=== PATIENT | female | born 1985 | race Caucasian/White ===

== ENCOUNTER 2016-07-17 05:52 | Inpatient (IN) | payer OTHER ==
[~2016-07-17] VITALS: Ht 157.5 cm; Wt 63.5 kg
[~2016-07-17 05:52] MED LIST: BUPR8TAB2 PO; PREN1TAB25 PO
[2016-07-17] MEDS ORDERED: Lactated Ringer's 1,000 ML IV PRN (06:46)
[2016-07-17] MEDS ORDERED: Ondansetron 2 mg/mL 2 mL Inj IVPUSH PRN ×2 (06:50→11:20)
[2016-07-17] MEDS ORDERED: Sodium Chloride LOK Flush 10 mL Syringe IVFLUSH PRN (06:50)
[2016-07-17] MEDS ORDERED: Oxytocin 30 Units/500 mL LR 30 UNITS in IV Premix 1 EACH IV PRN (06:50)
[2016-07-17] MEDS ORDERED: fentaNYL-PF 50 mCg/mL 2 mL Inj IVPUSH PRN (06:50)
[2016-07-17] MEDS ORDERED: Hemorrhage Kit, Post Partum XX ONE ×2 (06:50→13:35)
[2016-07-17] MEDS ORDERED: Oxytocin 10 Unit/mL Inj IM PRN ×2 (06:50→13:35)
[2016-07-17] MEDS ORDERED: Methylergonovine 0.2 mg/mL Inj IM PRN ×2 (06:50→13:35)
[2016-07-17] MEDS ORDERED: Carboprost 250 mCg/mL Inj IM PRN ×2 (06:50→13:35)
[2016-07-17 07:00] LABS: Mean Corpuscular Hemoglobin 31.5 pg (27.0-35.0); Mean Corpuscular Volume 89.8 fL (81-100)
[2016-07-17] MEDS: Ascorbic Acid 500 mg Tablet PO SCH (08:00)
--- NOTE | 2016-07-17 10:13 | HP ---
[address] [address] HISTORY AND PHYSICAL PATIENT: DEEPTHI CARTER : 1985 MR#: [id number] ADMIT: 07/17/2016 JOB ID: [id number] CHIEF COMPLAINT: Fluid vaginal discharge--I think I broke my water broke. HISTORY OF PRESENT ILLNESS: This is a 30-year-old obstetrical patient of mine who is a 5, para 2, at 39 and 3 days gestational age who presents to the Center complaining of waking up this morning at about 3:45 with fluid coming from her vagina. She took a shower and still continued to have fluid and thought she broke her water so she came in for evaluation. Her evaluation at the Center verified that she has ruptured her membranes and the fluid is clear. It was verified with obvious gross rupture of membranes. She has been jose off and on for a day or so, but at about 4 o'clock she started jose more rigorously, frequently, and with more intensity. She really has no other acute complaints. Specifically no chest pain, palpitations, shortness of breath. No other abdominal pains. She has no swelling in her feet. No blurry vision and no headaches. PAST OBSTETRICAL HISTORY: The patient has had 2 prior vaginal births, most recently in 2008. Both vaginal births were unremarkable, and she has also had 2 early miscarriages. COURSE: Her course has been unremarkable. Her blood type is B positive. She is rubella immune. Serology was nonreactive. She has negative hepatitis B, hepatitis C, HIV antibody screen as well as chlamydia and gonorrhea tests with the initial exam. Initial Pap smear was unremarkable except for BV for which she was treated early on with metronidazole. HSV titers were positive for which she has been on acyclovir for the last month. She had an MSAFP test that was positive and went to the [facility] and their workup was negative. 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 She went to the [facility] and their workup was negative. She declined diabetic screen at 28 weeks and her GBS status was checked, and she is negative. Her course has been entirely unremarkable. OBSTETRICAL RISK FACTORS: Multiple, to include: She has a history of heroin use, last used in January 2015. She denies any subsequent drug use and drug testing twice during the course of the has been negative. She is currently going to the local Suboxone clinic and being treated with Subutex daily. She has a history of LEEP procedure in 2012 on her cervix. She is planning on putting the baby up for adoption. There is a family locally that is planning on adopting the baby and have already met one of the members of the couple. Another risk factors is her herpes titer for herpes 2 is positive. She had BV on initial Pap and this was treated at 13 weeks. She had the positive MSAFP test, but subsequent negative workup, and she is a smoker. GYNECOLOGICAL HISTORY: Remarkable for having a positive HPV on Pap smears in the past with subsequent LEEP in 2012. She has a history of Chlamydia infection in 2008 that was treated, and she has a history of herpes type 2. PAST MEDICAL HISTORY: Significant for some depression for which she is not currently on any medications, but has been in the distant past. Her medical history is also significant for the drug use as mentioned above. Otherwise, her medical history is entirely unremarkable. PAST SURGICAL HISTORY: Negative. MEDICATIONS: Currently takin. Subutex. 2. Acyclovir 400 mg twice a day. 3. vitamins. ALLERGIES: She has no known drug allergies. FAMILY HISTORY: Significant for hypertension in paternal grandmother. Otherwise is noncontributory. SOCIAL HISTORY: The patient lives in [place] alone with her 2 children. 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 She is a smoker smoking a half pack a day. Denies any alcohol use or drug use. Again drug screens have been done twice during the course of the and have been negative. REVIEW OF SYSTEMS: See HPI above. The patient denies any recent illness. No fevers. No URI symptoms. OBJECTIVE: Well-developed, well-nourished woman in no apparent distress. She is 141 pounds. She is 5 feet 2 inches. BMI is normal. Blood pressure is 128/82, pulse 90, respirations 20, and she is afebrile. Lungs are clear to auscultation bilaterally with good air movement. Heart is regular rate and rhythm, no significant murmurs heard. Abdomen is gravid, otherwise benign. Extremities showed no significant edema and normal deep tendon reflexes. Cervical exam she is 1 cm about 80% to 90% effaced -3 station with the baby in a vertex position. She is jose irregularly. heart tracing is reactive. ASSESSMENT: Intrauterine at term with premature rupture of membranes. Will plan on admitting the patient for expectant management. We will plan on allowing her body to naturally go into labor for at least 6 hours and if she has not started cervical change will plan induction at that time. Otherwise I have written for routine intrapartum orders. I discussed routine expectant management issues and procedures. Also discussed potential complications in the usual obstetrical procedures to address them, but also the possible need for surgical care if a becomes needed. I also discussed the possible need for assistance with vacuum extraction and the associated potential complications. All of her questions were answered, and she expressed understanding of these issues and is willing to proceed.
[2016-07-17] MEDS ORDERED: Lactated Ringer's 500 ML IV ONE (11:17)
[2016-07-17] MEDS ORDERED: Lactated Ringer's 1,000 ML IV SCH ×3 (11:17→15:20)
[2016-07-17] MEDS ORDERED: EPHEDrine Sulfate 50 mg/mL Inj IVPUSH PRN (11:20)
[2016-07-17] MEDS ORDERED: fentaNYL 2 mCg/mL-Bupiv 0.125% 100 ML EPIDURAL SCH (11:20)
[2016-07-17] MEDS ORDERED: Atropine 1 mg/10 mL (Code) Syringe IVPUSH PRN (11:20)
[2016-07-17] MEDS ORDERED: fentaNYL 2 mCg/mL-Bupivicaine 0.125% 100 mL Premix EPIDURAL ONE (11:22)
--- NOTE | 2016-07-17 12:21 | PCM.HPANE ---
Patient Data Surgeon Admitting Provider:Mundo Mathew MD Attending Provider:Mundo Mathew MD Primary Care Physician:Mundo Mathew MD Other Provider:Niki Riosingham Anesthesia Reason for Visit Term Labor TERM LABOR Ht/WT & BMI Body Mass Index Allergies Coded Allergies: No Known Allergies (Verified , 05/23/15) Past Anesthesia History Anesthesia History: Denies:: Fam Anesthesia Reaction, Fam Malignant Hypertherm Diabetes History Hx Diabetes?: No MRSA MRSA: No Medications Reported Medications Vit#96/Ferrous Fum/FA ( Tablet)1 Each Tablet1 Tab PO DAILY #30 05/21/15 Buprenorphine SL 8 Mg Tab.subl8 Mg PO DAILY #28 05/21/15 History History of ENT Problems?: No HEENT History: Denies:: Dysphagia Hearing Problem Sinus Problem Denture Type: None Teeth Condition: Within Normal Limits Hx of Heart Problems?: No Cardiovascular History: Denies:: Congestive Heart Failure Edema Heart Murmur Hypertension Irregular Heartbeat Pacemaker Hx of Respiratory Problem?: No Respiratory History: Denies:: Asthma Cough Dyspnea Emphysema Hemoptysis Oxygen Administration Pulmonary Embolism Tuberculosis Hx Neurologic Problems?: No Neurological History: Denies:: Dizziness Headaches Multiple Sclerosis Parkinson's Disease Seizures Hx of GI Problems?: No Hx of Problems?: No Genitourinary History: Denies:: HX of Hemodialysis Kidney Stones HX of Peritoneal Dialysis: No Female Hx: Denies:: Currently Endometriosis Pelvic Inflammatory Problems with Breasts? Skin History: Denies:: History Skin Disorders? Pressure Ulcers Hx Musculoskeletal Problems?: No Musculoskeletal History: Denies:: Degenerative Joint Hx of Psycho/Social Problems?: Yes (hx meth/heroin use; now on suboxone; sober for over one year) Psycho Social History: Positive for:: Hx Depression Denies:: Anxiety Bipolar Disorder Hx Surgeries?: Yes Hx Any Other Health Problems?: No Other History: Denies:: Cancer Thyroid Disease History Blood Transfusions: Denies:: Blood Transfusions Hx Diabetes: No Hx Alcohol Use: NoHx Substance Use: Yes (heroin, meth, marijuana) Smoking Status: Current Every Day Smoker Have You Smoked inLast 12 mo: Yes Stop/Bang Risk Assessment Category Category 1A: Patient has history of documented sleep apnea, and HAS NOT received any narcotic, sedative or anesthesia administration during this stay. Category 1B: Patient has history of documented sleep apnea, and HAS received any narcotic , sedative or anesthesia administration during this stay Category 2: Patient has SUSPECTED Obstructive Sleep Apnea, and HAS received any narcotic , sedative or anesthesia administration during this stay. Category 3: Patient has SUSPECTED Obstructive Sleep Apnea and HAS NOT received narcotic, sedative or anesthesia administration during this stay. Category 4: Outpatient in Procedural Areas with known sleep apnea or who screen positive for High Risk via the STOP/BANG questionnaire. Exam Exam General Appearance: Alert, Oriented X3 HEENT/AIRWAY: MP 2, Neck Movement (FROM) Lungs: Clear to Auscultation, Clear to Percussion Heart: Exam Unremarkable, Regular Rate/Rhythm Meds/Labs/Diagnostics Labs Test 07/17/16 06:30 07/17/16 09:20 White Blood Count 8.3th/mm3 (3.8-10.1) Red Blood Count 4.22mil/mm3 (3.90-5.20) Hemoglobin 13.3g/dL (12.0-15.6) Hematocrit 37.9% (35.0-46.0) Mean Corpuscular Volume 89.8fL (81-100) Mean Corpuscular Hemoglobin 31.5pg (27.0-35.0) Mean Corpuscular Hemoglobin Concent 35.1% (32.0-37.0) Red Cell Distribution Width 12.6% (12.3-15.4) Platelet Count 196bil/L (150-400) Hold Urine Received (Received) Plan Impression Patient chart reviewed, patient interviewed and anesthestic plan with risks, benefits, and alternatives discussed, and informed consent obtained. ASA Physical Status: ASA3 Severe Disease (chronic suboxone; hx drug use) Anesthetic Plan: Epidural Bene/Risks/Altern/Consents: Yes HP Complete Prior to Induction: Yes Cali Moreno MD Jul 17, 2016 11:17
[2016-07-17] MEDS ORDERED: Witch Hazel-Glycerin Pads TOPICAL PRN (13:35)
[2016-07-17] MEDS ORDERED: Benzocaine (Dermoplast) 20% 60 Gm Spray TOPICAL PRN (13:35)
--- NOTE | 2016-07-17 14:26 | OP ---
[address] [address] OPERATIVE REPORT PATIENT: DEEPTHI CARTER : 1985 MR#: [id number] ADMIT: 07/17/2016 JOB ID: [id number] DATE OF SURGERY: 07/17/2016 SURGEON: Mundo Mathew MD PREOPERATIVE DIAGNOSIS(ES): Term POSTOPERATIVE DIAGNOSIS(ES): Spontaneous Vaginal Delivery at Term DELIVERY NOTE: The patient had a spontaneous delivery on July 17, as described below. I was the attending physician, Mundo Mathew MD Please see my admission history and physical for her admitting circumstances. Her labor course progressed rapidly and needed no augmentation. She presented with rupture of membranes at only 1 cm but fully effaced. Over the next few hours, she dilated slowly and eventually got to about 5 cm with regular contractions and requested an epidural. This was placed with good results. She was found to be completely dilated and effaced at 12:37 and began pushing. The baby was in an occiput anterior position with excellent epidural anesthesia. She pushed until she delivered the baby's head, and then there was no nuchal cord noted and then the rest of the delivery was completed at 13:09 over an intact perineum. Baby was placed on mom's tummy, and then after an approximately 60-second delay, then the cord was clamped and cut. The placenta delivered spontaneously and intact at 13:16. Three-vessel cord was noted. Inspection of the perineum and cervix revealed no lacerations or significant injury at all. ESTIMATED BLOOD LOSS: 200 cc. COMPLICATIONS: None. The baby was a baby boy with Apgars of 9 and 9. Weight is still pending. [facility]
[2016-07-17] MEDS ORDERED: Buprenorphine 2 mg SL Tablet SL ONE (14:35)
[2016-07-17] MEDS ORDERED: Sodium Chloride LOK Flush 10 mL Syringe IVFLUSH SCH (16:30)
[2016-07-18] MEDS ORDERED: Sodium Citrate-Citric Acid 15 mL Solution PO SCH (06:00)
[2016-07-18 06:20] LABS: Mean Corpuscular Hemoglobin 31.1 pg (27.0-35.0); Mean Corpuscular Volume 89.6 fL (81-100)
--- NOTE | 2016-07-18 06:24 | PCM.HPANE ---
Patient Data Surgeon Admitting Provider:Mundo Mathew MD Attending Provider:Mundo Mathew MD Primary Care Physician:Mundo Mathew MD Other Provider:Niki Riosingham Anesthesia Reason for Visit Term Labor TERM LABOR Ht/WT & BMI Body Mass Index Allergies Coded Allergies: No Known Allergies (Verified , 05/23/15) Past Anesthesia History Anesthesia History: Denies:: Fam Anesthesia Reaction, Fam Malignant Hypertherm Diabetes History Hx Diabetes?: No MRSA MRSA: No Medications Reported Medications Vit#96/Ferrous Fum/FA ( Tablet)1 Each Tablet1 Tab PO DAILY #30 05/21/15 Buprenorphine SL 8 Mg Tab.subl8 Mg PO DAILY #28 05/21/15 History History of ENT Problems?: No HEENT History: Denies:: Dysphagia Hearing Problem Sinus Problem Denture Type: None Teeth Condition: Within Normal Limits Hx of Heart Problems?: No Cardiovascular History: Denies:: Congestive Heart Failure Edema Heart Murmur Hypertension Irregular Heartbeat Pacemaker Hx of Respiratory Problem?: No Respiratory History: Denies:: Asthma Cough Dyspnea Emphysema Hemoptysis Oxygen Administration Pulmonary Embolism Tuberculosis Hx Neurologic Problems?: No Neurological History: Denies:: Dizziness Headaches Multiple Sclerosis Parkinson's Disease Seizures Hx of GI Problems?: No Hx of Problems?: No Genitourinary History: Denies:: HX of Hemodialysis Kidney Stones HX of Peritoneal Dialysis: No Female Hx: Denies:: Currently Endometriosis Pelvic Inflammatory Problems with Breasts? Skin History: Denies:: History Skin Disorders? Pressure Ulcers Hx Musculoskeletal Problems?: No Musculoskeletal History: Denies:: Degenerative Joint Hx of Psycho/Social Problems?: Yes (hx meth/heroin use; now on suboxone; sober for over one year) Psycho Social History: Positive for:: Hx Depression Denies:: Anxiety Bipolar Disorder Hx Surgeries?: Yes Hx Any Other Health Problems?: No Other History: Denies:: Cancer Thyroid Disease History Blood Transfusions: Denies:: Blood Transfusions Hx Diabetes: No Hx Alcohol Use: NoHx Substance Use: Yes (heroin, meth, marijuana) Smoking Status: Current Every Day Smoker Have You Smoked inLast 12 mo: Yes Stop/Bang Risk Assessment Category Category 1A: Patient has history of documented sleep apnea, and HAS NOT received any narcotic, sedative or anesthesia administration during this stay. Category 1B: Patient has history of documented sleep apnea, and HAS received any narcotic , sedative or anesthesia administration during this stay Category 2: Patient has SUSPECTED Obstructive Sleep Apnea, and HAS received any narcotic , sedative or anesthesia administration during this stay. Category 3: Patient has SUSPECTED Obstructive Sleep Apnea and HAS NOT received narcotic, sedative or anesthesia administration during this stay. Category 4: Outpatient in Procedural Areas with known sleep apnea or who screen positive for High Risk via the STOP/BANG questionnaire. Exam Exam General Appearance: Alert, Oriented X3 HEENT/AIRWAY: MP 2, Neck Movement (FROM), Mouth Opening (good) Lungs: Clear to Auscultation, Clear to Percussion Heart: Exam Unremarkable, Regular Rate/Rhythm Meds/Labs/Diagnostics Admission Meds Current Medications Lactated Ringer's (Lr) 1,000 ml @ 125 mls/hr Q8H IV Last administered on 06:17; Start 07/17/16 at 11:17; Stop 07/18/16 at 11:18 Citalopram Hydrobromide (CeleXA) 20 mg DAILY PO Last administered on 07/17/16 17:01; Start 07/17/16 at 14:35 Buprenorphine HCl (Subutex) 8 mg ONCE ONCE SL Last administered on 07/17/16 16:43; Start 07/17/16 at 14:35; Stop 07/17/16 at 14:45; Status DC Labs Test 07/17/16 09:20 07/18/16 06:00 Hold Urine Received (Received) Urine Opiates Screen Negative Urine Methadone Screen Negative Urine Barbiturates Screen Negative Urine Amphetamines Screen Negative Urine Benzodiazepines Screen Negative Urine Cocaine Metabolite Screen Negative Urine Cannabinoids Screen Negative Plan Impression Patient chart reviewed, patient interviewed and anesthestic plan with risks, benefits, and alternatives discussed, and informed consent obtained. ASA Physical Status: ASA2 Mod Systemic Disease Anesthetic Plan: MAC, SAB Bene/Risks/Altern/Consents: Yes HP Complete Prior to Induction: Yes Chang Spencer MD Jul 18, 2016 06:24
[2016-07-18] MEDS ORDERED: Lactated Ringer's 1,000 ML IV SCH (07:32)
[2016-07-18] MEDS ORDERED: Lactated Ringer's 500 ML IV PRN (07:32)
[2016-07-18] MEDS ORDERED: EPHEDrine Sulfate 50 mg/mL Inj IM PRN (07:35)
[2016-07-18] MEDS ORDERED: Phenylephrine 10,000 mCg/mL Inj IVPUSH PRN (07:35)
[2016-07-18] MEDS ORDERED: Labetalol 5 mg/mL 4 mL Inj IV PRN (07:35)
[2016-07-18] MEDS ORDERED: hydrALAZINE 20 mg/mL Inj IVPUSH PRN (07:35)
[2016-07-18] MEDS ORDERED: Ondansetron 2 mg/mL 2 mL Inj IVPUSH PRN (07:35)
[2016-07-18] MEDS ORDERED: fentaNYL-PF 50 mCg/mL 2 mL Inj IVPUSH PRN (07:35)
[2016-07-18] MEDS ORDERED: hydrOXYzine Inj 50 MG/1 mL SDV IM PRN (07:35)
[2016-07-18] MEDS ORDERED: HYDROmorphone 1 mg/mL Inj IVPUSH PRN (07:35)
[2016-07-18] MEDS ORDERED: EPHEDrine Sulfate 50 mg/mL Inj IVPUSH PRN (07:35)
[2016-07-18] MEDS ORDERED: Atropine 0.4 mg/mL Inj IVPUSH PRN (07:35)
[2016-07-18] MEDS ORDERED: Dexamethasone 4 mg/mL Inj IVPUSH PRN (07:35)
[2016-07-18] MEDS: oxyCODONE-Acetamin 5-325 mg Tablet PO PRN ×2 (09:19→14:21)
--- NOTE | 2016-07-18 09:49 | PROG NOTE ---
[address] [address] PROGRESS NOTE PATIENT: DEEPTHI CARTER : 1985 MR#: [id number] ADMIT: 07/17/2016 JOB ID: [id number] DATE: 07/18/2016 SUBJECTIVE: This is a 30-year-old female. She is para 3. She had an uneventful vaginal delivery yesterday, and she desires for permanent sterilization. The sterilization paper was signed more than 30 days ago. The procedure was arranged yesterday. I saw the patient this morning, and she is still desire for the procedure. After discussion of the benefits, risks, and alternatives of the procedure, informed consent signed. The patient understood there is risk of infection, bleeding, injury to the organs around the tubes including, but not limited to, the uterus, the ovaries, bowels, major nerves and major vessels. She understood this is a permanent procedure and there is no way to reverse, and she also understood that this is not 100% guaranteed for control.
--- NOTE | 2016-07-18 10:37 | NUR ---
Social work Note - Family Mother - Marce Kelley Father - Not involved, not willing to sign paperwork for adoption. Adoptive parents - Armando and Lamar Rutherford Marce Kelley is a 30 yr old who delivered baby boy yesterday and plans to complete an open adoption for her baby. She states that she has two other children who are in her care - the youngest being 8. MOB states that she became with a man she is no longer in relationship with and who is not interested in parenting. She states that she does not believe in and made arrangements with the adoptive family for an open adoption. MOB and the adoptive family are working through a private ballast regulator operator to finalize the adoption - paperwork had not been signed at the time of the interview. PRETTY is tearful, stating that she is sad that she does not feel able to parent this son. She states that she does not have the means to provide for his care and believes that the adoptive family is able to. But PRETTY admits that she is grieving. She has good supports - has friends who are willing and able to help her. Substance use: PRETTY has hx of heroin addiction - states that she stopped in 2014 and is on Subutex at this time. She plans to continue on meds to help. Mental Health: PRETTY endorses depression and identifies that she has struggled with PPD in the past. She has already talked with her provider about starting on medications. G[employer] LEAK INSPECTOR HELPER Provided education on PPD and provided handouts for resources. She denies any suicidal ideation. PRETTY voiced anxiety about how to share her decision to adopt with her friends, family and especially her son. GAS LEAK INSPECTOR HELPER provided support and provided resources for Pt to follow up with. GAS LEAK INSPECTOR HELPER spoke briefly to Lamar Rutherford, Adoptive mother. She has identified that the ballast regulator operator for the adoption is coming to the hospital today to sign paperwork for the adoption. Lamar denies any questions - has been working with watcher lookout tower and Head Tennis Coach to explore policies for visitation, feedings. GAS LEAK INSPECTOR HELPER discussed case with RN and will follow if needs arise. Plan: Open adoption planned for Teresa Kelley - ANDRE Humphrey
[2016-07-18] MEDS ORDERED: Buprenorphine 2 mg SL Tablet SL ONE (14:05)
--- NOTE | 2016-07-18 14:49 | PCM.ANEP1 ---
Post Anesthesia Phase 1 PACU Phase 1 Assessment Anesthetic Administered: SAB Level of Alertness: Awake, talking ANDERSON's with Equal Strength: Yes Pain: No Pain Scale Score: 4 Nausea or Vomiting: No Cardiovascular Function and Hy: No Lungs: Normal Air Movement Dermatome Level: T10 (Umbilicus) Complications: No Follow up Care: No Patient Instructions Provided: Yes Chang Spencer MD Jul 18, 2016 14:49
--- NOTE | 2016-07-18 17:32 | OP ---
[address] [address] OPERATIVE REPORT PATIENT: DEEPTHI CARTER : 1985 MR#: [id number] ADMIT: 07/17/2016 JOB ID: [id number] DATE OF SURGERY: 07/18/2016 SURGEON: Ashley Hart MD PREOPERATIVE DIAGNOSIS(ES): Para 3, status post normal vaginal delivery one day ago. Desire for sterilization. POSTOPERATIVE DIAGNOSIS(ES): Para 3, status post normal vaginal delivery one day ago. Desire for sterilization. INDICATIONS: This is a 30-year-old female, para 3, status post normal vaginal delivery. Desire for permanent sterilization. Informed consent form signed for tubal ligation. PROCEDURE IN DETAIL: The patient transferred to operating room. After anesthesia was noted to be adequate, she was placed in dorsal supine position. She was prepared and draped in normal sterile fashion. A transverse incision was placed under her umbilicus and this incision was carried through to the underlying fascia with a scalpel, and a transverse incision was placed in fascia and the underlying peritoneum identified and entered bluntly. At this time, the retractor was used to expose the fundus of the uterus and across this was used to clear the vision field. The left-sided tube was grasped gently by Jayna clamp and this was confirmed with the tube by seeing the whole range of the tube including the fimbria. The inner 1/3 of the tube was grasped by Jayna, and the segment was tied twice by 2-0 plain sutures. The segment of the left tube about 3 cm was removed and hemostasis confirmed. The left tube was returned back to the peritoneal cavity. The same procedure was done on the right tube and both segments of the tube were sent for pathology. Hemostasis confirmed. At this time, all instruments and gauzes removed from the field. The fascia was reapproximated by 0-Vicryl continuously. The skin was closed by 4-0 Monocryl subcutaneously. The patient tolerated the procedure well. All instrument, needles, laps and gauzes counted correct twice. The EBL during procedure was 5 cc. The patient was transferred to recovery room in stable condition.
[2016-07-18] MEDS: Ascorbic Acid 500 mg Tablet PO SCH (17:49)
--- NOTE | 2016-07-18 18:32 | PCM.DIOB ---
Obstetrical Disch Instruction Date of Service: Jul 18, 2016 Dates of Hospitalization Date of Hospital Admission Jul 17, 2016 at 06:16 Providers Admitting Physician: Mundo Mathew MD Primary Care Physician: Mundo Mathew MD Attending Physician: Mundo Mathew MD Discharge Diagnosis Problems: (1) Term Status: Resolved ICD Code: Z34.80 (2) Normal spontaneous vaginal delivery Status: Resolved ICD Code: O80 Diet Discharge Diet: No restrictions Activity Discharge Activity-General: Pelvic Rest for 6 weeks, Try not to overdue, Be up and about, Balance rest and activity, No lifting >15 pounds for 2 weeks Dressing and Incisional Care Hygiene: May shower Follow Up Plan Follow Up Plan f/u in 6 weeks and as needed. Follow-up Provider (F9): Mundo Mathew MD Follow-up appointment: Weeks (six) Call your provider for: Fever or Chills, Shortness of breath, Heavy vaginal bleeding, Heavy bleeding, Epigastric pain, Excessive constipation, Vaginal discomfort, Red painful breasts Mundo Mathew MD Jul 18, 2016 18:32
[2016-07-18] MEDS ORDERED: OXYC1TAB24 PO (18:33)
[2016-07-18] MEDS ORDERED: IBUP800T28 PO (18:33)
[2016-07-18 18:35] VITALS: BP 109/56; PULSE 74; RESP 16
[2016-07-18] MEDS ORDERED: fentaNYL-PF 50 mCg/mL 2 mL Inj ONE (19:24)
[2016-07-18] MEDS ORDERED: Propofol 10,000 mCg/mL 20 mL Inj ONE (19:24)
[2016-07-18] MEDS ORDERED: Ondansetron 2 mg/mL 2 mL Inj ONE (19:24)
--- NOTE | 2016-07-19 21:14 | DIS ---
[address] [address] DISCHARGE SUMMARY PATIENT: DEEPTHI CARTER : 1985 MR#: [id number] ADMIT: 07/17/2016 JOB ID: [id number] DIS: 07/18/2016 DISCHARGE DIAGNOSIS: Term , resolved with spontaneous vaginal delivery. HISTORY AND PHYSICAL: Please see my admission H and P for details. CONSULTATIONS: The patient had an obstetrical consultation prior to delivery and after she delivered her baby vaginally she had a tubal ligation performed by Dr. Hart. See Dr. Hart's consultation and operative note for details/ PROCEDURES: 1. The patient had a spontaneous vaginal delivery on the afternoon of July 17. See my delivery note for details. 2. The patient had a bilateral tubal ligation performed on the morning of July 18. See Dr. Hart's operative note for details. HOSPITAL COURSE: The patient was admitted with spontaneous rupture of membranes on the morning of July 17 and proceeded naturally and fairly quickly into labor and had a vaginal with no significant problems in the afternoon of July 17. See my delivery note for details. Her course was unremarkable. The next morning, on July 18, she had a tubal ligation performed by Dr. Hart. See Dr. Hart's operative note for details. She recovered nicely after that and was wanting to go home in the evening of the . DISCHARGE PHYSICAL EXAM: Her vital signs were normal and stable. Lungs were clear to auscultation bilaterally with good air movement. Heart was regular rate, rhythm without murmur. Abdomen was soft and tender around her umbilical incision site but otherwise was unremarkable. Uterus was firm and below the umbilicus. Extremities showed no significant edema and normal deep tendon reflexes. ASSESSMENT/PLAN: Status post spontaneous vaginal delivery as well as bilateral tubal ligation. Patient is stable and ready to be discharged. The patient was discharged home with discharge medications as follows: 1. Ibuprofen 800 mg to use t.i.d. p.r.n. for pain 2. Percocet 5/325, 20 tablets, to be used for breakthrough pain if needed. The patient was told to follow up with me in six weeks, otherwise as needed.
--- NOTE | 2016-07-20 13:40 | PATH ---
SURGICAL PATHOLOGY Attending Physician:Ashley Hart MD CASE STATUS: Signed Out PATIENT NAME: DEEPTHI CARTER PID: [id number] : 1985 DATE COLLECTED:07/18/2016 20:28 SPECIMEN: 1: Fallopian Tube, Sterilization 2: Fallopian Tube, Sterilization CLINICAL HISTORY: DESIRES BTL FOR STERILIZATION 30 YO BTL 07/17 (1 DAY ) UNKNOWN 1). LEFT FALLOPIAN TUBE SEGMENT 2). RIGHT FALLOPIAN TUBE SEGMENT FINAL DIAGNOSIS: 1. Fallopian Tube Segment, Left, Tubal Ligation: Complete cross-section of segment of fallopian tube x1. 2. Fallopian Tube Segment, Right, Tubal Ligation: Complete cross-section of segment of fallopian tube x1. ICD10: Z30.2 GROSS DESCRIPTION: The specimen is received in two formalin filled containers labeled with the patient's name. 1). The specimen is sublabeled "L. fallopian tube" and consists of a 2.5 x 0.6 x 0.6 CM cylindrical-shaped portion of tissue. The specimen is inked blue. The specimen is sectioned into 4 pieces and entirely submitted in cassette 1A. 2). The specimen is sublabeled "R. fallopian tube" and consists of a 1.4 x 0.6 0.5 CM cylindrical-shaped portion of tissue. The specimen is inked blue. The specimen is sectioned into 4 pieces and entirely submitted in cassette 2A. 07/18/2016 [facility] ICD-9 CODES: CPT CODES: 1: 69014 2: 45119 Electronically Signed Out Marcella White MD [facility] [address], [place] [address] Technical component performed at [facility], [facility] [address], [place], [address]
== END 2016-07-18 19:25 | disposition home or self-care (01) | DRG 541 ==
LOC: FBCO 05:52 → FBC 06:16
PROVIDERS: ADMIT Family Medicine; ATTEND Family Medicine
PROC: 10E0XZZ Delivery of Products of Conception, External Approach (ICD-10-PCS; principal; 2016-07-17)
PROC: 0UB70ZZ Excision of Bilateral Fallopian Tubes, Open Approach (ICD-10-PCS; 2016-07-18)
DX: O42.02 Full-term premature rupture of membranes, onset of labor within 24 hours of rupture (principal); F17.210 Nicotine dependence, cigarettes, uncomplicated; Z30.2 Encounter for sterilization; Z37.0 Single live birth; Z3A.39 39 weeks gestation of pregnancy; O99.334 Smoking (tobacco) complicating childbirth

== ENCOUNTER 2016-11-16 23:09 | Emergency (ER) | payer OTHER ==
[~2016-11-16] VITALS: Ht 157.5 cm; Wt 54.5 kg
[~2016-11-16 23:09] MED LIST changes: +IBUP800T28 PO; +OXYC1TAB24 PO
[2016-11-16 23:14] VITALS: BP 126/88; PULSE 92; RESP 16; O2SAT 97
--- NOTE | 2016-11-16 23:30 | ED.REPORT ---
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 Associated sx include nausea, vomiting, and dark urine. The pt took some Pepto Bismol which provided mild relief. She also had dark stool today after taking Pepto. She denies dysuria and hematuria. Currently, the pt feels better since she took Pepto just prior to arrival. The pt also reports depression for a few weeks. She denies suicidal ideation and confirms safety. Nursing Notes Stated Complaint: NAUSEA,VOMITING,BLK STOOL Chief Complaint: Female Abdominal Pain Nursing Notes Reviewed: Yes Allergies: Coded Allergies: No Known Allergies (Verified , 11/16/16) Scheduled Buprenorphine SL (Buprenorphine SL) 8 Mg Tab.subl 8 MG PO DAILY Omeprazole (Omeprazole) 20 Mg Capsule.dr 20 MG PO DAILY Vit#96/Ferrous Fum/FA ( Tablet) 1 Each Tablet 1 TAB PO DAILY Scheduled PRN Ibuprofen (Ibuprofen) 800 Mg Tablet 800 MG PO Q6H PRN PRN For Pain oxyCODONE-Acetaminophen 5-325 mg (oxyCODONE-Acetaminophen 5-325 mg) 1 Each Tablet 1-2 TAB PO Q4H PRN PRN For Pain General Time Seen by MD: 23:27 Chief Complaint Abdominal pain Hx Obtained From: Patient Arrived By: Walk-in Sudden in Onset?: Yes Onset Occurred: 1 week ago Context of Onset: Eating Symptom Duration: Since onset Location: : Abdomen upper Quality: Painful Radiation: : Does not radiate Severity: Current: Moderate Severity: Maximum: Moderate Recent Healthcare: No recent doctor visit Past Medical History Past Medical History Notes: PCP: Dr. Mathew Past Medical History [id number] Dec 16, 2015 EDC Past Surgical History None reported Smoking History Current Every Day Smoker Social History Drug Use: In recovery Ambulatory Status Independent Review of Systems Reports: dark urine GI: Reports: Abdominal pain, Melena, Nausea, Vomiting Female: Denies: Dysuria Complete sys rev & neg: except as marked. Psychiatric: Reports: Depression, Denies: Suicidal ideation Physical Exam Initial Vital Signs Vital Signs (First) Date Time Temp Pulse Resp B/P Pulse Ox O2 Delivery O2 Flow Rate FiO2 8/23/17 23:14 36.7 92 16 126/88 97 Room Air Initial VS: Reviewed Head / Eyes: Atraumatic, Normocephalic Neck: Supple, Non-tender, Full range of motion Extremities: Vascular intact, Neuro intact, No swelling, No tenderness Skin: Warm, Dry, No cyanosis Neurologic: Alert, Oriented, Nonfocal General/Constitutional: Awake, Alert, Well appearing, Cooperative Respiratory / Chest: Atraumatic, Breath sounds NL, Breath sounds = bilat, No respiratory distress, No rales, No rhonchi, No wheezing Cardiovascular: Heart rate NL, Regular rhythm, Heart sounds NL, No gallop, No murmurs, No rubs Abdomen: Atraumatic, Soft, No guarding, No rebound Tenderness/Guarding/Rebound: Positive: Tender RUQ... (Mild), Tender epigastric Back: Atraumatic, Full range of motion, Painless range of motion, Non-tender Interpretation & Diagnostics US abdomen Normal right upper quadrant abdominal ultrasound. Signed by Dr. Kirill Wang 11/16/16 00:36 Lab Results Interpretation Result Diagram: 11/16/16 2351 11/16/16 2351 Test 11/16/16 23:51 11/17/16 00:39 White Blood Count 4.3th/mm3 (3.8-10.1) Red Blood Count 4.61mil/mm3 (3.90-5.20) Hemoglobin 14.1g/dL (12.0-15.6) Hematocrit 39.2% (35.0-46.0) Mean Corpuscular Volume 85.0fL (81-100) Mean Corpuscular Hemoglobin 30.6pg (27.0-35.0) Mean Corpuscular Hemoglobin Concent 36.0% (32.0-37.0) Red Cell Distribution Width 11.8% (12.3-15.4) Platelet Count 237bil/L (150-400) Neutrophils (%) (Auto) 53.4% (40-74) Lymphocytes (%) (Auto) 30.9% (14-46) Monocytes (%) (Auto) 14.6% (4-12) Eosinophils (%) (Auto) 0.7% (0-5) Basophils (%) (Auto) 0.2% (0-3) Sodium Level 139mEq/L (134-144) Potassium Level 3.0mEq/L (3.5-5.2) Chloride Level 97mEq/L (97-108) Carbon Dioxide Level 24mmol/L (18-29) Blood Urea Nitrogen 9mg/dL (6-20) Creatinine 0.53mg/dL (0.57-1.00) Estimat Glomerular Filtration Rate 194mL/min (>59) Glucose Level 117mg/dL (60-99) Calcium Level 9.1mg/dL (8.5-10.1) Magnesium Level 1.6mg/dL (1.6-2.6) Total Bilirubin 0.2mg/dL (0.0-1.2) Aspartate Amino Transf (AST/SGOT) 14U/L (0-50) Alanine Aminotransferase (ALT/SGPT) 7U/L (0-32) Alkaline Phosphatase 53U/L (25-150) Total Protein 6.8g/dL (6.4-8.4) Albumin 4.1g/dL (3.4-5.0) Lipase 32U/L (13-60) Hold Urine Received (Received) Re-Eval/Medical Decision Med Decision/Clinical Course Med Decision/Clinical Course: Epigastric pain without evidence of biliary pathology. We will treat with omeprazole and recommend strict return and follow-up precautions. Source of Hx: Old records Re-Evaluation/Progress : Time of Eval: 23:39 Re-Evaluation/Progress Note: Rechecked pt. Discussed lab results, imaging results, diagnosis and plan to discharge. Pt understands and agrees with the plan. F/U instruction and RTER warning given. All questions addressed. Differential Diagnosis: Positive: Acute abdominal pain, Cholecystitis, Cholelithiasis, Constipation, Dyspepsia, GERD, Gastritis, Pancreatitis Counseled Regarding: Diagnosis, Lab results, Need for follow-up, When/why to return to ED Discharge & Departure Primary Impression: Abdominal Pain, Epigastric Disposition: Home Discharge Condition All VS Reviewed: Yes Condition: Stable Patient Instructions: Acute Abdominal Pain (ED) Additional Instructions: Your work up in the ER is reassuring. Take omeprazole and follow a bland diet. Use [id number] Tums as needed for indigestion. Call your regular doctor and follow-up with them as needed. Return to the ER as needed for worsening pain or other concerns. Referrals: Mundo Mathew MD (PCP) Scribe Attestation Portions of this note were transcribed by Nae Marcos. I,, personally performed the history,physical exam and medical decision-making;I reviewed and confirmed the accuracy of the information in the transcribed note. Signed by Clarence Davidson. 11/17/16 copies to: Mundo Mathew MD, Timothy S DO Nov 16, 2016 23:30 Nae Marcos Nov 16, 2016 23:41
[2016-11-16] MEDS ORDERED: 0.9% Sodium Chloride 1,000 ML IV ONE (23:43)
[2016-11-16] MEDS ORDERED: Ketorolac 15 mg/mL Inj IVPUSH ONE (23:45)
[2016-11-16] MEDS ORDERED: Ondansetron 2 mg/mL 2 mL Inj IVPUSH PRN (23:45)
[2016-11-16 23:54] LABS: BASOPHILS % (AUTO) 0.2 % (0-3); EOSINOPHILS % (AUTO) 0.7 % (0-5); MONOCYTES % (AUTO) 14.6 % (4-12); Mean Corpuscular Hemoglobin 30.6 pg (27.0-35.0); NEUTROPHILS % (AUTO) 53.4 % (40-74); Platelet Count 237 bil/L (150-400)
[2016-11-17 00:20] LABS: Magnesium 1.6 mg/dL (1.6-2.6)
[2016-11-17] MEDS ORDERED: OMEP20CA11 PO (00:44)
[2016-11-17 00:54] VITALS: BP 128/82; PULSE 87; RESP 18; O2SAT 100
--- NOTE | 2016-11-17 09:27 | DRSVH ---
PROCEDURE: US ABDOMEN, LIMITED ([id number]) INDICATIONS: upper abd pain TECHNIQUE: Real-time focused scanning was performed of the abdomen, with image documentation. COMPARISON: None. FINDINGS: Limited exam of the right upper quadrant demonstrates normal appearance of the liver, gallb ladder, bile ducts and the kidneys. IMPRESSION: Normal limited right upper quadrant ultrasound. Dictated by: Silvano GARRISON Interpreted: Freda Pitts MD on 11/17/2016 at 8:20 Approved by: Freda Pitts M.D. on 11/17/2016 at 9:26
== END 2016-11-17 00:55 | disposition home or self-care (01) ==
LOC: SED 23:09
DX: R10.13 Epigastric pain (principal); R11.2 Nausea with vomiting, unspecified; F32.9 Major depressive disorder, single episode, unspecified; F17.200 Nicotine dependence, unspecified, uncomplicated; F15.21 Other stimulant dependence, in remission; F11.21 Opioid dependence, in remission
CPT/HCPCS: 36415; 76705; 80053; 81025; 83690; 83735; 85025; 96361; 96374; 96375; 99285; J1885; J2405; J7030